=== PATIENT | female | born 1935 ===

== ENCOUNTER 2024-05-14 08:22 | Outpatient (RCR) | payer MEDICARE, SELFPAY | END 2024-05-15 11:49 | disposition home or self-care (01) | LOC: ST 08:22 | PROVIDERS: PCP Family Medicine; Visit Provider Family Medicine | DX: R13.10 Dysphagia, unspecified (principal); G20.A2 Parkinson's disease without dyskinesia, with fluctuations ==

== ENCOUNTER 2024-05-21 09:02 | Outpatient (OUT) | payer MEDICARE, SELFPAY ==
--- NOTE | 2024-05-21 09:22 | FL_ITS ---
[address] [address] Patient Name: BALTA DOBBS MRN: [id number] date: 1935 Sex: F Assigned Patient Location: OR Current Patient Location: OR Accession/Order Number: [id number] Exam Date: 05/21/2024 09:30 Report Date: 05/21/2024 13:03 At the request of: KATHY ADAMES Procedure: FL modified barium swallow EXAMINATION: FL modified barium swallow HISTORY: Dysphagia COMPARISON: No relevant comparison available. TECHNIQUE: A swallowing evaluation was performed with fluoroscopy in the usual manner. Standard level fluoroscopic mode of operation utilized. FINDINGS: ORAL PHASE: Normal deglutition. PHARYNGEAL PHASE: Early spillage of thin liquid over base of tongue. Normal swallowing with thickened liquid, pudding consistency, and solids. ASPIRATION: Aspiration of thin liquid which did not induce coughing, or extremely minimal coughing. STRUCTURE: No visible obstruction, stricture, or dilatation. OTHER: Negative. FL/OR modified barium swallow IMPRESSION: 1. Silent aspiration during swallowing of thin liquid. 2. No appreciable abnormality/problem swallowing thickened liquid, pudding consistency, and solids. 3. Please see speech pathologist's report for additional discussion and recommendations. Electronically authenticated by: TANA PENG Date: 05/21/2024 13:03
== END 2024-05-21 09:03 | disposition home or self-care (01) ==
LOC: FL 09:05
PROVIDERS: PCP Family Medicine; Visit Provider Family Medicine
DX: R13.10 Dysphagia, unspecified (principal)
CPT/HCPCS: 74230; 92611

== ENCOUNTER 2024-06-10 10:04 | Outpatient (RCR) | payer MEDICARE, SELFPAY | END 2024-07-17 12:58 | disposition home or self-care (01) | LOC: ST 10:04 | PROVIDERS: PCP Family Medicine; Visit Provider Family Medicine | DX: R47.02 Dysphasia (principal) | CPT/HCPCS: 92526 ==